=== PATIENT | female | born 1940 | race Caucasian/White ===

== ENCOUNTER 2017-08-04 07:35 | Day surgery (SDC) | payer OTHER ==
[~2017-08-04 07:35] MED LIST: TETRACAINE 0.5% OPHTH 1 DOSE AFFEYE ONE
[2017-08-04] MEDS ORDERED: VIGAMOX 0.5% OPHTH 1 DOSE AFFEYE ONE ×5 (07:36→11:20)
[2017-08-04] MEDS ORDERED: PROLENSA OPHTH 1 DOSE AFFEYE ONE (07:47)
[2017-08-04] MEDS ORDERED: ALPHAGAN-P OPHTH 1 DOSE AFFEYE ONE (07:48)
[2017-08-04] MEDS ORDERED: CYCLOGYL 1% OPHTH 1 DOSE OP ONE ×4 (07:49→07:55)
[2017-08-04] MEDS ORDERED: MYDRIACIL OPHTH 1 DOSE AFFEYE ONE ×3 (07:49→07:55)
[2017-08-04] MEDS ORDERED: AK-DILATE 2.5% OPHTH 1 DOSE OP ONE ×2 (07:52→07:55)
[2017-08-04] MEDS ORDERED: NS 500 ML IV 500 ML IV ONE (08:24)
[2017-08-04] MEDS ORDERED: TETRACAINE 0.5% OPHTH 1 DOSE AFFEYE ONE ×3 (10:59→11:09)
[2017-08-04] MEDS ORDERED: BETADINE OPHTH SOLN 5% EACHEYE ONE (10:59)
[2017-08-04] MEDS ORDERED: ADRENALINE CHL INJ IJ ONE ×2 (11:02→11:09)
[2017-08-04] MEDS ORDERED: XYLOCAINE-MPF 1% IJ ONE ×2 (11:02→11:09)
[2017-08-04] MEDS ORDERED: DUOVISC IO ONE ×2 (11:02→11:09)
[2017-08-04] MEDS ORDERED: BSS OPHTH (PLAIN) 500 ML with VANCOMYCIN HCL 500 MG VIAL 25 MG, ADRENALINE CHL INJ 1 MG IR ONE ×3 (11:03)
[2017-08-04 11:50] VITALS: BP 123/68
[2017-08-04] MEDS ORDERED: DIPRIVAN VIAL ONE (15:44)
== END 2017-08-04 11:40 | disposition home or self-care (01) ==
LOC: SURG1 07:35
PROVIDERS: ATTEND Ophthalmology
PROC: 08RJ3JZ Replacement of Right Lens with Synthetic Substitute, Percutaneous Approach (ICD-10-PCS; principal; 2017-08-04 12:00)
PROC: 08DJ3ZZ Extraction of Right Lens, Percutaneous Approach (ICD-10-PCS; principal; 2017-08-04 12:00)
DX: H25.11 Age-related nuclear cataract, right eye (principal); H25.011 Cortical age-related cataract, right eye
CPT/HCPCS: 99100; A4217; J0170; J3370; J3490

== ENCOUNTER 2017-08-18 08:46 | Day surgery (SDC) | payer OTHER ==
[2017-08-18] MEDS ORDERED: NS 500 ML IV 500 ML IV ONE (09:41)
[2017-08-18] MEDS ORDERED: TETRACAINE 0.5% OPHTH 1 DOSE AFFEYE ONE ×4 (09:43→13:05)
[2017-08-18] MEDS ORDERED: VIGAMOX 0.5% OPHTH 1 DOSE AFFEYE ONE ×5 (09:45→13:17)
[2017-08-18] MEDS ORDERED: PROLENSA OPHTH 1 DOSE AFFEYE ONE (09:56)
[2017-08-18] MEDS ORDERED: ALPHAGAN-P OPHTH 1 DOSE AFFEYE ONE (09:58)
[2017-08-18] MEDS ORDERED: MYDRIACIL OPHTH 1 DOSE AFFEYE ONE ×3 (09:59→10:02)
[2017-08-18] MEDS ORDERED: AK-DILATE 2.5% OPHTH 1 DOSE OP ONE ×3 (09:59→10:02)
[2017-08-18] MEDS ORDERED: CYCLOGYL 1% OPHTH 1 DOSE OP ONE ×3 (09:59→10:02)
[2017-08-18] MEDS ORDERED: ZOFRAN INJ 4 MG VIAL ONE (11:17)
[2017-08-18] MEDS ORDERED: BETADINE OPHTH SOLN 5% EACHEYE ONE (12:50)
[2017-08-18] MEDS ORDERED: XYLOCAINE-MPF 1% IJ ONE ×2 (12:57→13:05)
[2017-08-18] MEDS ORDERED: ADRENALINE CHL INJ IJ ONE ×2 (12:57→13:05)
[2017-08-18] MEDS ORDERED: DUOVISC IO ONE ×2 (12:58→13:05)
[2017-08-18] MEDS ORDERED: BSS OPHTH (PLAIN) 500 ML with VANCOMYCIN HCL 500 MG VIAL 25 MG, ADRENALINE CHL INJ 1 MG IR ONE ×6 (12:58)
[2017-08-18] MEDS ORDERED: VERSED ONE (15:26)
[2017-08-18] MEDS ORDERED: DIPRIVAN VIAL ONE (15:26)
[2017-08-18 16:29] VITALS: BP 118/78
== END 2017-08-18 13:40 | disposition home or self-care (01) ==
LOC: SURG1 08:46
PROVIDERS: ATTEND Ophthalmology
PROC: 08DK3ZZ Extraction of Left Lens, Percutaneous Approach (ICD-10-PCS; principal; 2017-08-18 15:15)
PROC: 08RK3JZ Replacement of Left Lens with Synthetic Substitute, Percutaneous Approach (ICD-10-PCS; principal; 2017-08-18 15:15)
DX: H25.12 Age-related nuclear cataract, left eye (principal); H25.012 Cortical age-related cataract, left eye
CPT/HCPCS: 99100; A4217; J0170; J2250; J2405; J3370; J3490